=== PATIENT | male | born 1965 | race Caucasian/White ===

== ENCOUNTER 2024-04-05 22:16 | Emergency (ER) | payer OTHER ==
[~2024-04-05] VITALS: Ht 177.8 cm; Wt 100.7 kg
[2024-04-05 22:27] VITALS: BP_SYST 140; PULSE 64; RESP 20; TEMP 97.5; O2SAT 95
[2024-04-06 00:04] LABS: RED CELL DISTRIBUTION WIDTH 12.6 % (9.0-15.0)
[2024-04-06 00:05] LABS: ANION GAP 8 (5-15); CALCIUM 8.5 mg/dL (8.4-11.0); CARBON DIOXIDE 31 mmol/L (23-29); CHLORIDE 97 mmol/L (98-107); GFR AFRICAN AMERICAN 6 mL/min (>90); GLUCOSE 193 mg/dL (74-106); POTASSIUM 3.7 mmol/L (3.5-5.1); SODIUM SERUM 136 mmol/L (136-145); UREA NITROGEN, BLOOD 72 mg/dL (8-21)
[2024-04-06 00:13] LABS: GFR NON AFRICAN-AMERICAN 5 mL/min (>90)
[2024-04-06 00:14] LABS: CREATININE 11.43 mg/dL (0.55-1.30)
[2024-04-06] MEDS: cefTRIAXone 1 GM IVPB PREMIX 50 ML IV ONE (00:14)
[2024-04-06 00:15] LABS: BASOPHILS # (AUTO) 0.1 K/uL (0.0-0.2); BASOPHILS % (AUTO) 0.7 % (0.0-2.0); EOSINOPHILS # (AUTO) 0.2 K/uL (0.0-0.4); EOSINOPHILS % (AUTO) 1.8 % (0.0-4.0); HEMATOCRIT 23.6 % (36-54); HEMOGLOBIN 8.4 g/dL (14.0-18.0); LYMPHOCYTES # (AUTO) 0.7 K/uL (1.0-5.5); LYMPHOCYTES % (AUTO) 6.6 % (20.5-51.5); MEAN CORPUSCULAR HEMOGLOBIN 33 pg (27-31); MEAN CORPUSCULAR HGB CONC 35 % (32-36); MEAN CORPUSCULAR VOLUME 94 fL (79.0-98.0); MONOCYTES # (AUTO) 0.8 K/uL (0.0-1.0); MONOCYTES % (AUTO) 7.9 % (1.7-9.3); NEUTROPHILS # (AUTO) 8.3 K/uL (1.8-7.7); PLATELET COUNT (AUTO) 283 K/uL (130-430); RED BLOOD CELL COUNT(AUTO) 2.52 MIL/uL (4.2-6.2); WHITE BLOOD COUNT (AUTO) 9.9 K/uL (4.8-10.8)
[2024-04-06] MEDS ORDERED: PRED20TA PO (01:16)
[2024-04-06 01:51] LABS: INFLUENZA TYPE A Negative (NEGATIVE); INFLUENZA TYPE B NEGATIVE (NEGATIVE)
[2024-04-06 02:02] VITALS: BP_SYST 100; PULSE 60; RESP 19; TEMP 96.5; O2SAT 95
== END 2024-04-06 02:05 | disposition home or self-care (01) ==
LOC: SED 22:16
DX: R06.02 Shortness of breath (principal); Z20.822 Contact with and (suspected) exposure to COVID-19; R05.9 Cough, unspecified; J45.909 Unspecified asthma, uncomplicated; I12.0 Hypertensive chronic kidney disease with stage 5 chronic kidney disease or end stage renal disease; E11.22 Type 2 diabetes mellitus with diabetic chronic kidney disease; N18.6 End stage renal disease; Z88.1 Allergy status to other antibiotic agents; Z88.5 Allergy status to narcotic agent; Z88.8 Allergy status to other drugs, medicaments and biological substances
CPT/HCPCS: 99285; 96365; 71045; 87426; 80048; 83880; 85025; 87040; 84484; 36415; 93005; 83605; 87804 ×2; J0696

== ENCOUNTER 2024-04-30 18:34 | Emergency (ER) | payer MEDICARE ==
[~2024-04-30] VITALS: Ht 177.8 cm; Wt 93.9 kg
[2024-04-30 18:34] VITALS: BP_SYST 127; PULSE 70; RESP 19; TEMP 97; O2SAT 97
[~2024-04-30 18:34] MED LIST: PRED20TA PO
[2024-04-30 19:06] LABS: HEMATOCRIT 32.2 % (36-54); HEMOGLOBIN 11.4 g/dL (14.0-18.0); MEAN CORPUSCULAR HEMOGLOBIN 33 pg (27-31); MEAN CORPUSCULAR HGB CONC 36 % (32-36); MEAN CORPUSCULAR VOLUME 92 fL (79.0-98.0); PLATELET COUNT (AUTO) 323 K/uL (130-430); RED BLOOD CELL COUNT(AUTO) 3.51 MIL/uL (4.2-6.2); RED CELL DISTRIBUTION WIDTH 14.1 % (9.0-15.0); WHITE BLOOD COUNT (AUTO) 11.4 K/uL (4.8-10.8)
[2024-04-30 19:35] LABS: ALBUMIN 2.5 g/dL (3.4-4.8); BILIRUBIN,DIRECT 0.1 mg/dL (0.0-0.3); CALCIUM 9.5 mg/dL (8.4-11.0); TOTAL BILIRUBIN 0.5 mg/dL (0.0-1.0); TOTAL PROTEIN, SERUM 6.6 g/dL (6.4-8.3)
[2024-04-30 19:38] LABS: CREATININE 9.1 mg/dL (0.55-1.30); POTASSIUM 2.9 mmol/L (3.5-5.1)
[2024-04-30 19:39] LABS: BAND % (MANUAL) 0 % (0-6); BASOPHILS % (MANUAL) 0 % (0-2); EOSINOPHILS % (MANUAL) 1 % (0-7); LYMPHOCYTES % (MANUAL) 7 % (20-46); MONOCYTES % (MANUAL) 14 % (0-11)
[2024-04-30 19:40] LABS: PLATELET ESTIMATE ADEQUATE (ADEQUATE)
[2024-04-30] MEDS: POTASSIUM CHLORIDE 20 MEQ/PKT PACKET PO ONE (20:06)
[2024-04-30 20:50] VITALS: BP_SYST 145; PULSE 69; RESP 18; TEMP 98.6; O2SAT 98
== END 2024-04-30 20:50 | disposition home or self-care (01) ==
LOC: SED 18:34
DX: E87.6 Hypokalemia (principal); R53.1 Weakness; R42 Dizziness and giddiness; E11.22 Type 2 diabetes mellitus with diabetic chronic kidney disease; I12.0 Hypertensive chronic kidney disease with stage 5 chronic kidney disease or end stage renal disease; N18.6 End stage renal disease; Z99.2 Dependence on renal dialysis; J45.909 Unspecified asthma, uncomplicated; Z88.1 Allergy status to other antibiotic agents; Z88.8 Allergy status to other drugs, medicaments and biological substances; Z79.899 Other long term (current) drug therapy
CPT/HCPCS: 36415; 71045; 80053; 80076; 83690; 85007; 85027; 99284